=== PATIENT | female | born 1970 | race Caucasian/White ===

== ENCOUNTER 2018-10-01 09:10 | Emergency (ER) | payer MEDICARE, OTHER ==
[2018-10-01] MEDS ORDERED: SODIUM CHLORIDE 0.9% 1,000 ML IV STA (09:24)
--- NOTE | 2018-10-01 09:24 | ED ---
Chest Pain HPI - General Chief Complaint: Chest Pain Stated Complaint: Chest pain Time Seen by Provider: 10/01/18 09:19 Source: patient, RN notes reviewed, old records reviewed Mode of arrival: wheelchair Limitations: no limitations - History of Present Illness Initial Comments: This is a 48-year-old female the ER for evaluation. Today she presents for evaluation in regards to headache and chest pain. Patient has had a chronic migraine for one week. Chest pain began yesterday into today. She did take a Tylenol for this pain no improvement with the pain. Patient denies recent travel history or sick contacts no prior history of similar pain before no cardiac risk factors. Patient has recently been smoking but is also cutting back on her smoking MD Complaint: chest pain -: days(s) (2) Onset: other (Patient believes is recently after taking Tylenol 3) Pain Location: left chest Pain Radiation: LUE Severity: moderate Severity scale (1-10): 4 Quality: tightness Consistency: constant, intermittent Improves With: nothing Worsens With: nothing Context: recent illness (Migraine headache) Anginal Symptoms: nausea Other Symptoms: cough Treatments Prior to Arrival: none - Related Data Home Medications Medication Instructions Recorded Confirmed Phentermine HCl [Adipex-P] 37.5 mg PO DAILY 10/01/18 10/01/18 Allergies Allergy/AdvReac Type Severity Reaction Status Date / Time No Known Allergies Allergy Verified 10/01/18 09:58 Review of Systems ROS Statement: Those systems with pertinent positive or pertinent negative responses have been documented in the HPI. ROS Other: All systems not noted in ROS Statement are negative. EKG Findings - EKG Comments: EKG Findings:: EKG shows sinus rhythm rate of 75, MT 150, QRS 86, QTc 426 Past Medical History Additional Past Medical History / Comment(s): MIGRAINE History of Any Multi-Drug Resistant Organisms: None Reported Past Surgical History: Back Surgery, Cholecystectomy, Hysterectomy, Orthopedic Surgery, Tubal Ligation Past Psychological History: No Psychological Hx Reported Smoking Status: Current every day smoker Past Alcohol Use History: None Reported Past Drug Use History: None Reported General Exam Limitations: no limitations General appearance: alert, in no apparent distress Head exam: Present: atraumatic, normocephalic, normal inspection Eye exam: Present: normal appearance, PERRL, EOMI. Absent: scleral icterus, conjunctival injection, periorbital swelling ENT exam: Present: normal exam, mucous membranes moist Neck exam: Present: normal inspection. Absent: tenderness, meningismus, lymphadenopathy Respiratory exam: Present: normal lung sounds bilaterally. Absent: respiratory distress, wheezes, rales, rhonchi, stridor Cardiovascular Exam: Present: regular rate, normal rhythm, normal heart sounds. Absent: systolic murmur, diastolic murmur, rubs, gallop, clicks GI/Abdominal exam: Present: soft, normal bowel sounds. Absent: distended, tenderness, guarding, rebound, rigid Extremities exam: Present: normal inspection, full ROM, normal capillary refill. Absent: tenderness, pedal edema, joint swelling, calf tenderness Back exam: Present: normal inspection Neurological exam: Present: alert, oriented X3, CN II-XII intact Psychiatric exam: Present: normal affect, normal mood Skin exam: Present: warm, dry, intact, normal color. Absent: rash Course Vital Signs 10/01/18 10/01/18 10/01/18 09:14 09:30 10:30 Temperature 97.6 F Pulse Rate 104 H 82 78 Respiratory 16 20 20 Rate Blood Pressure 133/76 133/81 154/67 O2 Sat by Pulse 99 99 99 Oximetry - Reevaluation(s) Reevaluation #1: 10/01/18 11:30 Medical record is reviewed Reevaluation #2: 10/01/18 11:30 Patient's headache is improved Chest Pain MDM - MDM 48 female the ER for evaluation of migraine headache with chest pain headache is resolved, she does have mild pneumomediastinum, patient will be discharged home follow-up with primary care Disposition Clinical Impression: Chest pain, Migraine headache, Pneumomediastinum Disposition: TRANSFER TO PSYCH HOSP/UNIT Condition: Good Instructions (If sedation given, give patient instructions): Chest Pain (ED), Migraine Headache (ED) Is patient prescribed a controlled substance at d/c from ED?: No Referrals: Nonstaff,Physician [REFERRING] - 1-2 days
[2018-10-01] MEDS ORDERED: KETOROLAC 30 MG/ML 1 ML VIAL IVP STA (10:09)
[2018-10-01] MEDS ORDERED: PROCHLORPERAZINE 10 MG TAB PO STA (10:09)
[2018-10-01] MEDS ORDERED: diphenhydrAMINE 50 MG/ML 1 ML VIAL IVP STA (10:09)
--- NOTE | 2018-10-01 10:11 | XR ---
EXAMINATION TYPE: XR chest 2V DATE OF EXAM: 10/01/2018 COMPARISON: NONE HISTORY: Chest pain TECHNIQUE: Frontal and lateral views of the chest are obtained. FINDINGS: There is no focal air space opacity, pleural effusion, or pneumothorax seen. The cardiac silhouette size is within normal limits. The osseous structures are intact. Cholecystectomy clips a re seen. IMPRESSION: No acute cardiopulmonary process.
[2018-10-01 10:20] LABS: Basophils % (A) 0 %; Eosinophils # (A) 0.1 k/uL (0-0.7); Eosinophils % (A) 1 %; HCT 40.2 % (34.0-46.0); HGB 13.1 gm/dL (11.4-16.0); Lymphocytes % (A) 22 %; MCH 30.3 pg (25.0-35.0); MCHC 32.7 g/dL (31.0-37.0); MCV 92.6 fL (80.0-100.0); Mean Platelet Volume 7.5; Monocytes # (A) 0.5 k/uL (0-1.0); Monocytes % (A) 5 %; Neutrophils # (A) 6.4 k/uL (1.3-7.7); Neutrophils % (A) 70 %; Platelet Count 295 k/uL (150-450); RBC 4.34 m/uL (3.80-5.40); RDW 13.7 % (11.5-15.5); WBC 9.1 k/uL (3.8-10.6)
[2018-10-01 10:30] LABS: INR 0.9 (<1.2); Partial Thromboplastin Time 24.7 sec (22.0-30.0); Prothrombin Time 9.8 sec (9.0-12.0)
[2018-10-01 10:31] LABS: ALT 9 U/L (9-52); AST 17 U/L (14-36); African American GFR (CKD) >90 (>60 ml/min/1.73 sqM); Albumin 4.2 g/dL (3.5-5.0); Alkaline Phosphatase 60 U/L (38-126); Anion Gap 9 mmol/L; Blood Urea Nitrogen 10 mg/dL (7-17); Calcium 9.5 mg/dL (8.4-10.2); Carbon Dioxide 27 mmol/L (22-30); Chloride 104 mmol/L (98-107); Glucose 136 mg/dL (74-99); Potassium 3.6 mmol/L (3.5-5.1); Sodium 140 mmol/L (137-145); Total Bilirubin 0.5 mg/dL (0.2-1.3); Total Protein 7.4 g/dL (6.3-8.2)
[2018-10-01 10:56] VITALS: PULSE 78
--- NOTE | 2018-10-01 11:17 | CT ---
EXAMINATION TYPE: CT angio chest DATE OF EXAM: 10/01/2018 COMPARISON: NONE HISTORY: chest and left arm pain CT DLP: 238.8 mGycm. Automated Exposure Control for Dose Reduction was Utilized. CONTRAST: CTA scan of the thorax is performed with IV Contrast, patient injected with 100 mL of Isovue 370, pul monary embolism protocol. MIP Images are created on CT scanner and reviewed. FINDINGS: LUNGS: Bibasilar opacities appear to represent dependent atelectasis. The lungs are grossly clear, th ere is no concerning parenchymal mass or nodule identified. There is no pleural effusion or pneumot horax seen. The tracheobronchial tree is patent. MEDIASTINUM: Pneumomediastinum is seen. This is seen surrounding the esophagus that also seen extendi ng up the mediastinum to the level of the aortic arch and surrounding the ventricles. There is satisf actory enhancement of the pulmonary artery and its branches, there is no CT evidence for pulmonary em bolism. There are no greater than 1 cm hilar or mediastinal lymph nodes. No cardiomegaly or perica rdial effusion is seen. OTHER: Mild multilevel degenerative changes of the thoracic spine. IMPRESSION: 1. Pneumomediastinum. This can be posttraumatic, sequela of esophageal tear, or infectious. No perica rdial effusion is seen. Multiple foci of air are noted to be seen surrounding the distal esophagus. F indings were conveyed to the ordering physician Dr. Watson by Dr. Malcolm at 1111 on 10/01/2018. 2. No evidence of pulmonary embolus. 3. Subsegmental dependent atelectasis.
[2018-10-01 11:54] VITALS: BP 123/66; RESP 18; TEMP 98.3
== END 2018-10-01 11:57 ==
LOC: EC 09:10
DX: J98.2 Interstitial emphysema (principal); G43.909 Migraine, unspecified, not intractable, without status migrainosus; M79.602 Pain in left arm; F17.200 Nicotine dependence, unspecified, uncomplicated; Z79.899 Other long term (current) drug therapy
CPT/HCPCS: 36415; 93005; 83880; 80053; 83690; 83735; 84484; 85025; 85610; 85730; 71046; 71275; 99285; 96374; 96375; 96361; S0183; J1200; J1885; Q9967

== ENCOUNTER 2019-11-30 02:14 | Emergency (ER) | payer MEDICARE, OTHER ==
[2019-11-30 02:41] VITALS: BP 133/66; PULSE 76; RESP 18; TEMP 97.6
[2019-11-30] MEDS ORDERED: LIDOCAINE 1% INJ 10MG/ML (20 ML MDV) SQ ONE (02:46)
[2019-11-30] MEDS ORDERED: BACITRACIN OINT 1 EACH PACKET TOPICAL ONE (03:12)
--- NOTE | 2019-11-30 03:14 | ED ---
General Adult HPI - General Chief complaint: Extremity Injury, Upper Stated complaint: Finger Laceration Time Seen by Provider: 11/30/19 02:39 Source: patient, RN notes reviewed Mode of arrival: ambulatory - History of Present Illness Initial comments: 49-year-old female presents to the emergency department for a chief complaint of finger laceration. Patient cut her right third digit. She reports she was out walking her dog when her dog went to pull and the metal part of the leash pinched her finger. Patient states she does not have any pain aside from laceration site. Tetanus is up-to-date.Patient has no other complaints at this time including shortness of breath, chest pain, abdominal pain, nausea or vomiting, headache, or visual changes. - Related Data Home Medications Medication Instructions Recorded Confirmed Phentermine HCl [Adipex-P] 37.5 mg PO DAILY 10/01/18 10/01/18 Allergies Allergy/AdvReac Type Severity Reaction Status Date / Time No Known Allergies Allergy Verified 11/30/19 02:38 Review of Systems ROS Statement: Those systems with pertinent positive or pertinent negative responses have been documented in the HPI. ROS Other: All systems not noted in ROS Statement are negative. Past Medical History Additional Past Medical History / Comment(s): MIGRAINE History of Any Multi-Drug Resistant Organisms: None Reported Past Surgical History: Back Surgery, Cholecystectomy, Hysterectomy, Orthopedic Surgery, Tubal Ligation Past Psychological History: No Psychological Hx Reported Smoking Status: Current every day smoker Past Alcohol Use History: None Reported Past Drug Use History: None Reported General Exam General appearance: alert, in no apparent distress Head exam: Present: atraumatic, normocephalic, normal inspection Eye exam: Present: normal appearance, PERRL, EOMI. Absent: scleral icterus, conjunctival injection, periorbital swelling ENT exam: Present: normal exam, mucous membranes moist Neck exam: Present: normal inspection, full ROM. Absent: tenderness, meningismus, lymphadenopathy Respiratory exam: Present: normal lung sounds bilaterally. Absent: respiratory distress, wheezes, rales, rhonchi, stridor Cardiovascular Exam: Present: regular rate, normal rhythm, normal heart sounds. Absent: systolic murmur, diastolic murmur, rubs, gallop, clicks Extremities exam: Present: other (Patient has a 2 cm stellate laceration noted of the palmar aspect of the right third digit middle phalanx. No evidence of foreign body. No evidence of tendon involvement.) Course Vital Signs 11/30/19 02:34 Temperature 97.6 F Pulse Rate 76 Respiratory 18 Rate Blood Pressure 133/66 O2 Sat by Pulse 98 Oximetry Procedures - Laceration Laceration #1 Consent Obtained: verbal consent Indication: laceration Site: hand Size (cm): 2 Description: stellate Depth: simple, single layer Anesthetic Used: lidocaine 1% Anesthesia Technique: local infiltration Amount (mls): 3 Pre-repair: wound explored, irrigated extensively, deep structures intact Type of Sutures: nylon Size of Sutures: 5-0 Number of Sutures: 5 Technique: simple, interrupted Patient Tolerated Procedure: well, no complications Medical Decision Making - Medical Decision Making Laceration was irrigated thoroughly with saline pressure irrigation. It was inspected, no evidence of tendon involvement. Patient has full flexion of the DIP and PIP joints in the right third digit. Capillary refill less than 2 seconds throughout the right third digit, sensation intact. 5 sutures were ap plied as wound was in a stellate fashion. Approximation is well achieved. Tetanus is already up-to-date. I did discuss care instructions and return parameters including those for infection. Disposition Clinical Impression: Laceration Disposition: HOME SELF-CARE Condition: Good Instructions (If sedation given, give patient instructions): Care For Your Stitches (ED), Laceration (ED) Additional Instructions: Please keep the area clean and apply antibiotic ointment twice daily. Follow up with primary care in 1-2 days for recheck. If you have any worsening symptoms or signs of infection such as spreading or streaking redness, drainage, or fever return to the emergency room. Otherwise return in 10 days for suture removal. Is patient prescribed a controlled substance at d/c from ED?: No Referrals: Levon Quintero DO [Primary Care Provider] - 1-2 days Time of Disposition: 03:14
== END 2019-11-30 03:30 | disposition home or self-care (01) ==
LOC: EC 02:14
DX: S61.212A Laceration without foreign body of right middle finger without damage to nail, initial encounter (principal); F17.200 Nicotine dependence, unspecified, uncomplicated; W26.8XXA Contact with other sharp object(s), not elsewhere classified, initial encounter; Y93.K1 Activity, walking an animal
CPT/HCPCS: 99282; 12001; J2001

== ENCOUNTER 2020-02-12 09:18 | Emergency (ER) | payer MEDICARE, OTHER ==
[2020-02-12 09:25] VITALS: BP 121/74; PULSE 78; RESP 18; TEMP 98.7
[2020-02-12] MEDS ORDERED: HYDROmorphone 1 MG/ML 1 ML SYRINGE IM STA (09:54)
[2020-02-12] MEDS ORDERED: METOCLOPRAMIDE 5 MG/ML 2 ML VIAL IM STA (09:54)
--- NOTE | 2020-02-12 10:00 | ED ---
General Adult HPI - General Chief complaint: Headache Stated complaint: Headache Time Seen by Provider: 02/12/20 09:35 Source: patient, RN notes reviewed Mode of arrival: ambulatory Limitations: no limitations - History of Present Illness Initial comments: Patient is a pleasant 49-year-old female presenting to the emergency Department with complaints of headache. Onset of symptoms was yesterday. Patient states she does get frequent headaches and frequent migraines similar to this, almost every other day. Patient states sometimes she can take [id number] medications to help and sometimes she needs to come to the hospital. Headache is more right-sided. Patient does have some associated nausea and vomiting. Patient also has associated photophobia. No confusion or weakness. Patient denies abdominal pain. No fever. Patient states she does feel warm and cold however that is normal with her headaches. Patient has had previous diagnostic imaging including CT and MRI and has seen doctors for this multiple times. - Related Data Home Medications Medication Instructions Recorded Confirmed Phentermine HCl [Adipex-P] 37.5 mg PO DAILY 10/01/18 10/01/18 Allergies Allergy/AdvReac Type Severity Reaction Status Date / Time topiramate [From Topamax] Allergy Rash/Hives Verified 02/12/20 09:21 ciprofloxacin [From Cipro] AdvReac Nausea & Verified 02/12/20 09:21 Vomiting Review of Systems ROS Statement: Those systems with pertinent positive or pertinent negative responses have been documented in the HPI. ROS Other: All systems not noted in ROS Statement are negative. Constitutional: Reports: as per HPI. Denies: fever Eyes: Denies: eye pain ENT: Denies: ear pain Respiratory: Denies: cough Cardiovascular: Denies: chest pain Endocrine: Denies: fatigue Gastrointestinal: Reports: nausea, vomiting. Denies: abdominal pain Genitourinary: Denies: dysuria Musculoskeletal: Denies: back pain Skin: Denies: rash Neurological: Reports: headache. Denies: weakness, numbness, paresthesias, confusion Past Medical History Additional Past Medical History / Comment(s): MIGRAINE History of Any Multi-Drug Resistant Organisms: None Reported Past Surgical History: Back Surgery, Cholecystectomy, Hysterectomy, Orthopedic Surgery, Tubal Ligation Past Psychological History: No Psychological Hx Reported Smoking Status: Former smoker Past Alcohol Use History: None Reported Past Drug Use History: None Reported General Exam Limitations: no limitations General appearance: alert, in no apparent distress Head exam: Present: normocephalic Eye exam: Present: normal appearance, PERRL, EOMI. Absent: nystagmus ENT exam: Present: normal oropharynx Neck exam: Present: normal inspection. Absent: tenderness, meningismus Respiratory exam: Present: normal lung sounds bilaterally Cardiovascular Exam: Present: regular rate, normal rhythm GI/Abdominal exam: Present: soft. Absent: distended, tenderness, guarding, rebound, rigid, pulsatile mass Extremities exam: Present: normal inspection Neurological exam: Present: alert, oriented X3, CN II-XII intact. Absent: motor sensory deficit Expanded Neurological exam: Present: protecting the airway Patient oriented to: Present: person, place, time Speech: Present: fluid speech Cranial nerves: EOM's Intact: Normal, Facial Sensation: Normal Sensory exam: Upper Extremity Light Touch: Normal, Lower Extremity Light Touch: Normal Motor strength exam: RUE: 5, LUE: 5, RLE: 5, LLE: 5 Eye Response: (4) open spontaneously Motor Response: (6) obeys commands Verbal Response: (5) oriented Psychiatric exam: Present: normal affect, normal mood Skin exam: Present: normal color Course Vital Signs 02/12/20 09:22 Temperature 98.7 F Pulse Rate 78 Respiratory 18 Rate Blood Pressure 121/74 O2 Sat by Pulse 97 Oximetry Medical Decision Making - Medical Decision Making Patient requests medication for symptom relief and discharge. Patient offered to be reevaluated however refuses and requests discharge after medication Disposition Clinical Impression: Cephalgia Disposition: HOME SELF-CARE Condition: Stable Instructions (If sedation given, give patient instructions): Acute Headache (ED) Additional Instructions: Please follow-up with your primary care physician in the next or 2 for recheck. Return for fevers, weakness, change or worsening symptoms or other concerns. Is patient prescribed a controlled substance at d/c from ED?: No Referrals: Levon Quintero DO [Primary Care Provider] - 1-2 days Time of Disposition: 09:59
== END 2020-02-12 10:19 | disposition home or self-care (01) ==
LOC: EC 09:18
DX: R51.9 Headache, unspecified (principal); R11.2 Nausea with vomiting, unspecified; H53.19 Other subjective visual disturbances; Z88.1 Allergy status to other antibiotic agents; Z88.8 Allergy status to other drugs, medicaments and biological substances; Z86.69 Personal history of other diseases of the nervous system and sense organs; Z87.891 Personal history of nicotine dependence
CPT/HCPCS: 96372 ×3; 99283 ×2; J2765; J1170

== ENCOUNTER 2020-03-30 14:29 | Emergency (ER) | payer MEDICARE, OTHER ==
[2020-03-30 14:34] VITALS: RESP 18
[2020-03-30] MEDS ORDERED: CYCLOBENZAPRINE 10 MG TAB PO STA (15:07)
[2020-03-30] MEDS ORDERED: KETOROLAC 15 MG/ML 1 ML VIAL IM STA (15:07)
[2020-03-30] MEDS ORDERED: LIDOCAINE 5% PATCH TOPICAL STA (15:08)
--- NOTE | 2020-03-30 15:12 | ED ---
Back Pain HPI - General Chief Complaint: Back Pain/Injury Stated Complaint: Back Pain Time Seen by Provider: 03/30/20 14:48 Source: patient Limitations: no limitations - History of Present Illness Initial Comments: 50-year-old female with history of chronic back pain presents to the emergency department with chief complaint of back pain.patient reports this pain started approximately one month ago in the left thoracic region and now it has gradually moved to the right side. 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 Patient states she does attempt to use proper body mechanics but she has difficult timeremoving the person from a wheelchair. Patient states her back pain is exacerbated with left and right rotation. Reports the pain is her personal to palpation. Denies any chest pain or shortness of breath abdominal pain, weakness or paresthesias to the lower extremities. She does report taking Tylenol and using Biofreeze on her back with no significant improvement in symptoms. She does have history of lumbar surgery in the back. States recently she was diagnosed with shingles by her primary care physician and took the medication for it. States she will was where she is having the pain but does not have a rash anymore.denies saddle anesthesia, urinary retention with overflow incontinence or bowel incontinence. - Related Data Home Medications Medication Instructions Recorded Confirmed Phentermine HCl [Adipex-P] 37.5 mg PO DAILY 10/01/18 10/01/18 Allergies Allergy/AdvReac Type Severity Reaction Status Date / Time topiramate [From Topamax] Allergy Rash/Hives Verified 03/30/20 14:35 ciprofloxacin [From Cipro] AdvReac Nausea & Verified 03/30/20 14:35 Vomiting Review of Systems ROS Statement: Those systems with pertinent positive or pertinent negative responses have been documented in the HPI. ROS Other: All systems not noted in ROS Statement are negative. Past Medical History Additional Past Medical History / Comment(s): MIGRAINE History of Any Multi-Drug Resistant Organisms: None Reported Past Surgical History: Back Surgery, Cholecystectomy, Hysterectomy, Orthopedic Surgery, Tubal Ligation Past Psychological History: No Psychological Hx Reported Smoking Status: Current every day smoker Past Alcohol Use History: None Reported Past Drug Use History: None Reported General Exam Limitations: no limitations General appearance: alert, in no apparent distress, obese Head exam: Present: atraumatic, normocephalic, normal inspection Eye exam: Present: normal appearance, PERRL, EOMI Pupils: Present: normal accommodation ENT exam: Present: normal exam, normal oropharynx, mucous membranes moist Neck exam: Present: normal inspection, full ROM. Absent: tenderness Respiratory exam: Present: normal lung sounds bilaterally. Absent: respiratory distress, chest wall tenderness Cardiovascular Exam: Present: regular rate, normal rhythm, normal heart sounds GI/Abdominal exam: Present: soft. Absent: distended, tenderness, guarding, rebound Extremities exam: Present: normal inspection, full ROM, normal capillary refill, other (+2 ulnar and radial pulses bilaterally. +2 dorsalis pedis and posterior tibials bilaterally.). Absent: tenderness, pedal edema, joint swelling, calf tenderness Back exam: Present: normal inspection, full ROM, tenderness, paraspinal tenderness (paraspinal tenderness in the left and right thoracic region.). Absent: CVA tenderness (R), CVA tenderness (L) Neurological exam: Present: alert, oriented X3, normal gait Psychiatric exam: Present: normal affect, normal mood Skin exam: Present: warm, dry, intact, normal color Course Vital Signs 03/30/20 03/30/20 14:32 16:06 Temperature 98.4 F 98 F Pulse Rate 93 71 Respiratory 18 18 Rate Blood Pressure 151/73 130/75 O2 Sat by Pulse 99 100 Oximetry Medical Decision Making - Medical Decision Making 50-year-old female with history of chronic back pain presents emergency Department with chief complaint of back pain. Physical examination, patient has or spinal tenderness in the thoracic region. This seems to be exacerbated with left and right rotation. Pain is definitely reproducible to palpation. I do suspect musculoskeletal etiology for her symptoms. 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 States she has not taken a day off work for the past 5 months. Patient advised to rest and alternate between Tylenol and Motrin for pain control. Patient was given Flexeril, Lidoderm patch and Toradol in the emergency department. She did reports some relief in symptoms. She was also given Tylenol 3 starter pack and advised not to drive or operate any machinery when taking medication. Also advised to see an property specialist. No concern for cauda equina. Return parameters discussed the patient was standing agreeable. Case discussed with Dr. Camacho. Disposition Clinical Impression: Mechanical back pain Disposition: HOME SELF-CARE Condition: Stable Instructions (If sedation given, give patient instructions): Acute Low Back Pain (ED) Additional Instructions: alternate between Tylenol and Motrin for pain control. Do not drive or operate heavy machinery when taking Tylenol 3. Follow up with orthopedic doctor. Return to emergency department if symptoms worsen. Is patient prescribed a controlled substance at d/c from ED?: No Referrals: [facility] [NON-STAFF] - 1-2 days Mirna Guardado DO [Doctor of Osteopathic Medicine] - 1-2 days Tatyana Angulo MD [REFERRING] - 1-2 days Nonstaff,Physician [Primary Care Provider] - 1-2 days Time of Disposition: 16:13
--- NOTE | 2020-03-30 16:01 | XR ---
EXAMINATION TYPE: XR thoracic spine complete DATE OF EXAM: 03/30/2020 CLINICAL HISTORY: Pain for one month. TECHNIQUE: Frontal, lateral, and swimmer's view of thoracic spine are obtained. COMPARISON: None. FINDINGS: Thoracic spine show satisfactory alignment without evidence of acute fracture or dislocatio n. Vertebral body heights and disc space heights are preserved. Mild multilevel anterior spurring. V isualized ribs are intact bilaterally. Cholecystectomy clips are noted. IMPRESSION: As above.
[2020-03-30 16:07] VITALS: BP 130/75; PULSE 71; TEMP 98
[2020-03-30] MEDS ORDERED: ACET/COD 300 MG/30 MG STARTER PACK 6 TAB BTL PO STA (16:12)
== END 2020-03-30 16:21 | disposition home or self-care (01) ==
LOC: EC 14:29
DX: M54.6 Pain in thoracic spine (principal); F17.200 Nicotine dependence, unspecified, uncomplicated; Z90.49 Acquired absence of other specified parts of digestive tract; Z90.710 Acquired absence of both cervix and uterus; Z98.51 Tubal ligation status; Z88.1 Allergy status to other antibiotic agents; Z88.8 Allergy status to other drugs, medicaments and biological substances; X50.0XXA Overexertion from strenuous movement or load, initial encounter; Y92.89 Other specified places as the place of occurrence of the external cause; Y99.0 Civilian activity done for income or pay
CPT/HCPCS: 72072; 99283; 96372; J1885

== ENCOUNTER 2020-05-12 14:31 | Emergency (ER) | payer MEDICARE, OTHER ==
[2020-05-12 14:42] VITALS: RESP 18; TEMP 98
--- NOTE | 2020-05-12 16:17 | XR ---
EXAMINATION TYPE: XR chest 1V portable DATE OF EXAM: 05/12/2020 COMPARISON: NONE HISTORY: Short of breath TECHNIQUE: Single view FINDINGS: Heart and mediastinum are normal. Lungs are clear. Diaphragm is normal. Bony thorax appears intact. There are chest leads. IMPRESSION: No active cardiopulmonary disease. Normal heart.
[2020-05-12 16:21] LABS: Basophils % (A) 0 %; Eosinophils % (A) 1 %; HCT 41.8 % (34.0-46.0); HGB 13.8 gm/dL (11.4-16.0); Lymphocytes # (A) 1.1 k/uL (1.0-4.8); Lymphocytes % (A) 15 %; MCV 93.8 fL (80.0-100.0); Mean Platelet Volume 7.8; Monocytes # (A) 0.3 k/uL (0-1.0); Monocytes % (A) 4 %; Neutrophils # (A) 5.8 k/uL (1.3-7.7); Neutrophils % (A) 79 %; Platelet Count 271 k/uL (150-450); RBC 4.46 m/uL (3.80-5.40); RDW 13.8 % (11.5-15.5); WBC 7.4 k/uL (3.8-10.6)
[2020-05-12 16:34] LABS: D-Dimer 0.34 mg/L FEU (<0.60); INR 0.9 (<1.2); Partial Thromboplastin Time 23.9 sec (22.0-30.0); Prothrombin Time 9.7 sec (9.0-12.0)
[2020-05-12 16:42] LABS: ALT 15 U/L (4-34); AST 21 U/L (14-36); African American GFR (CKD) >90 (>60 ml/min/1.73 sqM); Albumin 4.3 g/dL (3.5-5.0); Alkaline Phosphatase 73 U/L (38-126); C Reactive Protein 5.6 mg/L (<10.0); Calcium 9.5 mg/dL (8.4-10.2); Carbon Dioxide 28 mmol/L (22-30); Glucose 127 mg/dL (74-99); LDH 453 U/L (313-618); Magnesium 2.1 mg/dL (1.6-2.3); Non-African American GFR(CKD) 86 (>60 ml/min/1.73 sqM); Potassium 3.8 mmol/L (3.5-5.1); Sodium 140 mmol/L (137-145); Total Protein 7.3 g/dL (6.3-8.2)
[2020-05-12 16:48] LABS: Anion Gap 7 mmol/L; Blood Urea Nitrogen 14 mg/dL (7-17); Chloride 105 mmol/L (98-107); Total Bilirubin 0.3 mg/dL (0.2-1.3)
--- NOTE | 2020-05-12 17:10 | ED ---
General Adult HPI - General Chief complaint: Shortness of Breath Stated complaint: Chest Pain,Headache Time Seen by Provider: 05/12/20 15:10 Source: patient Mode of arrival: ambulatory Limitations: no limitations - History of Present Illness Initial comments: 50-year-old female with history of migraines presents to the emergency department with a chief complaint of chest pain and shortness of breath. Patient reports last night she began developing right-sided chest pain without any radiation while she was out eating. Patient reports afterwards she developed left-sided chest pain that is more achy in nature and is radiating to the left shoulder or neck. Patient also reports associated dyspnea on exertion. She reports the chest pain seems to be exacerbated whenever she is taking a deep breath. She also reports a migraine headache that is typical for her with associated nausea and photosensitivity. She denies blurry vision, one-sided weakness paresthesias. No other focal deficits. She also reports body aches, fatigue, chills denies any fevers. Denies sore throat rhinorrhea or otalgia. Denies any cough abdominal pain or back pain. - Related Data Home Medications Medication Instructions Recorded Confirmed Phentermine HCl [Adipex-P] 37.5 mg PO DAILY 10/01/18 10/01/18 Allergies Allergy/AdvReac Type Severity Reaction Status Date / Time topiramate [From Topamax] Allergy Rash/Hives Verified 05/12/20 14:42 ciprofloxacin [From Cipro] AdvReac Nausea & Verified 05/12/20 14:42 Vomiting Review of Systems ROS Statement: Those systems with pertinent positive or pertinent negative responses have been documented in the HPI. ROS Other: All systems not noted in ROS Statement are negative. Past Medical History Additional Past Medical History / Comment(s): MIGRAINE History of Any Multi-Drug Resistant Organisms: None Reported Past Surgical History: Back Surgery, Breast Surgery, Cholecystectomy, Hy sterectomy, Orthopedic Surgery, Tubal Ligation Additional Past Surgical History / Comment(s): bar in left breast. Past Psychological History: No Psychological Hx Reported Smoking Status: Current every day smoker Past Alcohol Use History: None Reported Past Drug Use History: None Reported General Exam Limitations: no limitations General appearance: alert, in no apparent distress, obese Head exam: Present: atraumatic, normocephalic, normal inspection Eye exam: Present: normal appearance, PERRL, EOMI Pupils: Present: normal accommodation ENT exam: Present: normal exam, normal oropharynx, mucous membranes moist Neck exam: Present: normal inspection, full ROM. Absent: tenderness Respiratory exam: Present: normal lung sounds bilaterally. Absent: respiratory distress Cardiovascular Exam: Present: regular rate, normal rhythm, normal heart sounds Extremities exam: Present: normal inspection, full ROM, normal capillary refill. Absent: tenderness Back exam: Present: normal inspection, full ROM. Absent: tenderness Neurological exam: Present: alert, oriented X3 Psychiatric exam: Present: normal affect, normal mood Skin exam: Present: warm, dry, intact, normal color Course Vital Signs 05/12/20 05/12/20 14:37 17:37 Temperature 98 F Pulse Rate 80 79 Respiratory 18 18 Rate Blood Pressure 142/79 143/93 O2 Sat by Pulse 100 100 Oximetry EKG Findings - EKG Comments: EKG Findings:: Sinus rhythm with no ST or T-wave changes. Ventricular rate 74, PA 162, QRS 80, QTC 448. Medical Decision Making - Medical Decision Making 50-year-old female with history of migraines presents emergency Department with a chief complaint of chest pain shortness of breath. On physical examination, patient is resting comfortably. Clear to auscultation. No reproducible chest pain on palpation. Vital signs within normal limits. CBC CMP unremarkable. Quite is within normal limits. D-dimer negative. Troponin negative. EKG jono wing sinus rhythm and no ST or T-wave changes. Chest x-ray is unremarkable. On reevaluation, patient states she wants to be discharged. I did recommend at least a secondary troponin, she declined. States she wants to follow-up with her primary care physician. I did leave recommendation for a belt builder helper. She agreed to see him. Strict return parameters were thoroughly discussed with patient was understanding and agreeable. Case discussed with . - Lab Data Result diagrams: 05/12/20 15:33 05/12/20 15:33 Lab Results 05/12/20 05/12/20 05/12/20 Range/Units 15:33 15:33 15:33 WBC 7.4 (3.8-10.6) k/uL RBC 4.46 (3.80-5.40) m/uL Hgb 13.8 (11.4-16.0) gm/dL Hct 41.8 (34.0-46.0) % MCV 93.8 (80.0-100.0) fL MCH 31.0 (25.0-35.0) pg MCHC 33.0 (31.0-37.0) g/dL RDW 13.8 (11.5-15.5) % Plt Count 271 (150-450) k/uL MPV 7.8 Neutrophils % 79 % Lymphocytes % 15 % Monocytes % 4 % Eosinophils % 1 % Basophils % 0 % Neutrophils # 5.8 (1.3-7.7) k/uL Lymphocytes # 1.1 (1.0-4.8) k/uL Monocytes # 0.3 (0-1.0) k/uL Eosinophils # 0.0 (0-0.7) k/uL Basophils # 0.0 (0-0.2) k/uL PT 9.7 (9.0-12.0) sec INR 0.9 (<1.2) APTT 23.9 (22.0-30.0) sec D-Dimer 0.34 (<0.60) mg/L FEU Sodium 140 (137-145) mmol/L Potassium 3.8 (3.5-5.1) mmol/L Chloride 105 (98-107) mmol/L Carbon Dioxide 28 (22-30) mmol/L Anion Gap 7 mmol/L BUN 14 (7-17) mg/dL Creatinine 0.81 (0.52-1.04) mg/dL Est GFR (CKD-EPI)AfAm >90 (>60 ml/min/1.73 sqM) Est GFR (CKD-EPI)NonAf 86 (>60 ml/min/1.73 sqM) Glucose 127 H (74-99) mg/dL Plasma Lactic Acid Roge (0.7-2.0) mmol/L Calcium 9.5 (8.4-10.2) mg/dL Magnesium 2.1 (1.6-2.3) mg/dL Total Bilirubin 0.3 (0.2-1.3) mg/dL AST 21 (14-36) U/L ALT 15 (4-34) U/L Alkaline Phosphatase 73 (38-126) U/L Lactate Dehydrogenase 453 (313-618) U/L Troponin I (0.000-0.034) ng/mL C-Reactive Protein 5.6 (<10.0) mg/L Total Protein 7.3 (6.3-8.2) g/dL Albumin 4.3 (3.5-5.0) g/dL Coronavirus (PCR) (Not Detectd) 05/12/20 05/12/20 05/12/20 Range/Units 15:33 15:33 15:34 WBC (3.8-10.6) k/uL RBC (3.80-5.40) m/uL Hgb (11.4-16.0) gm/dL Hct (34.0-46.0) % MCV (80.0-100.0) fL MCH (25.0-35.0) pg MCHC (31.0-37.0) g/dL RDW (11.5-15.5) % Plt Count (150-450) k/uL MPV Neutrophils % % Lymphocytes % % Monocytes % % Eosinophils % % Basophils % % Neutrophils # (1.3-7.7) k/uL Lymphocytes # (1.0-4.8) k/uL Monocytes # (0-1.0) k/uL Eosinophils # (0-0.7) k/uL Basophils # (0-0.2) k/uL PT (9.0-12.0) sec INR (<1.2) APTT (22.0-30.0) sec D-Dimer (<0.60) mg/L FEU Sodium (137-145) mmol/L Potassium (3.5-5.1) mmol/L Chloride (98-107) mmol/L Carbon Dioxide (22-30) mmol/L Anion Gap mmol/L BUN (7-17) mg/dL Creatinine (0.52-1.04) mg/dL Est GFR (CKD-EPI)AfAm (>60 ml/min/1.73 sqM) Est GFR (CKD-EPI)NonAf (>60 ml/min/1.73 sqM) Glucose (74-99) mg/dL Plasma Lactic Acid Roge 1.7 (0.7-2.0) mmol/L Calcium (8.4-10.2) mg/dL Magnesium (1.6-2.3) mg/dL Total Bilirubin (0.2-1.3) mg/dL AST (14-36) U/L ALT (4-34) U/L Alkaline Phosphatase (38-126) U/L Lactate Dehydrogenase (313-618) U/L Troponin I <0.012 (0.000-0.034) ng/mL C-Reactive Protein (<10.0) mg/L Total Protein (6.3-8.2) g/dL Albumin (3.5-5.0) g/dL Coronavirus (PCR) Not Detected (Not Detectd) Disposition Clinical Impression: Shortness of breath Disposition: HOME SELF-CARE Condition: Stable Instructions (If sedation given, give patient instructions): Shortness of Breath (ED) Additional Instructions: Please return to the Emergency Department if symptoms worsen or any other concerns. Is patient prescribed a controlled substance at d/c from ED?: No Referrals: Nonstaff,Physician [Primary Care Provider] - 1-2 days Moses Mora MD [STAFF PHYSICIAN] - 1-2 days Time of Disposition: 17:31
[2020-05-12 17:41] VITALS: BP 143/93; PULSE 79
== END 2020-05-12 17:37 | disposition home or self-care (01) ==
LOC: EC 14:31
DX: R06.02 Shortness of breath (principal); F17.200 Nicotine dependence, unspecified, uncomplicated; Z20.822 Contact with and (suspected) exposure to COVID-19; Z79.899 Other long term (current) drug therapy; Z88.1 Allergy status to other antibiotic agents; Z88.8 Allergy status to other drugs, medicaments and biological substances
CPT/HCPCS: 36415; 71045; 80053; 82728; 83605; 83615; 83735; 84145; 84484; 85025; 85379; 85610; 85730; 86140; 87635; 93005; 99285